=== PATIENT | female | born 1945 | race Caucasian/White ===

== ENCOUNTER 2017-09-28 11:46 | Outpatient (CLI) | payer MEDICARE ==
[2017-09-28 18:57] LABS: BASOPHILS # (AUTO) 0.1 10^3/uL (0.0-0.1); EOSINOPHILS # (AUTO) 0.2 10^3/uL (0.0-0.7); EOSINOPHILS % (AUTO) 2.8 %; HCT - HEMATOCRIT 35.8 % (37.0-47.0); HGB - HEMOGLOBIN 11.5 g/dL (12.0-16.0); LYMPHOCYTES # (AUTO) 1.6 10^3/uL (1.5-3.5); MEAN CORPUSCULAR HGB CONC 32.2 g/dL (32.0-36.0); MEAN PLATELET VOLUME 10.2 fL (7.9-10.8); MONOCYTES # (AUTO) 0.5 10^3/uL (0.0-1.0); MONOCYTES % (AUTO) 7.7 %; NEUTROPHILS % (AUTO) 63.5 %; RED BLOOD COUNT 4.26 10^6/uL (4.20-5.40); RED CELL DISTRIBUTION WIDTH 14.6 % (12.0-15.0); UNCORRECTED WHITE BLOOD COUNT 6.4 x10^3/uL; WHITE BLOOD COUNT 6.4 x10^3/uL (4.8-10.8)
[2017-09-28 19:34] LABS: ALBUMIN/GLOBULIN RATIO 1.4 (1.0-2.2); BILIRUBIN,TOTAL 0.8 mg/dL (0.2-1.0); BUN - BLOOD UREA NITROGEN 13 mg/dL (6-20); CALCIUM 9.5 mg/dL (8.5-10.3); CARBON DIOXIDE - CO2 27 mmol/L (21-32); CHLORIDE 103 mmol/L (101-111); CHOL/HDL RATIO 2.5 (<4.4); CHOLESTEROL 134 mg/dL; CREATININE 0.8 mg/dL (0.4-1.0); GFR - MDRD 71 (>89); GLUCOSE 118 mg/dL (70-100); HDL CHOLESTEROL 54 mg/dL; LDL/HDL RATIO 0.8 (<4.4); POTASSIUM 4.1 mmol/L (3.5-5.0); SODIUM 136 mmol/L (135-145); TOTAL PROTEIN 7.3 g/dL (6.7-8.2); TRIGLYCERIDES 180 mg/dL; VLDL CHOLESTEROL 36 mg/dL
[2017-09-28 19:37] LABS: HEMOGLOBIN A1C 0.58 g/dL
== END 2017-09-28 11:47 | disposition home or self-care (01) ==
LOC: LAB.F 11:46
PROVIDERS: ATTEND Physician Assistant Medical
DX: Z51.81 Encounter for therapeutic drug level monitoring (principal); I10 Essential (primary) hypertension; E78.5 Hyperlipidemia, unspecified; E11.9 Type 2 diabetes mellitus without complications
CPT/HCPCS: 36415; 80053; 80061; 83036; 85025

== ENCOUNTER 2017-10-21 11:59 | Outpatient (CLI) | payer MEDICARE ==
--- NOTE | 2017-10-24 09:58 | Mammography Report ---
DATE OF SERVICE: 10/21/2017 DIGITAL BILATERAL SCREENING MAMMOGRAM: 10/21/2017 CLINICAL INDICATION: A 72-year-old with history of late childbearing, history of benign biopsies, fo r screening. COMPARISON: 11/2015, 10/2013, 01/2012, 10/2010. TECHNIQUE: Routine CC and MLO projections were obtained of the breasts. FINDINGS: The breasts demonstrate scattered fibroglandular densities bilaterally. Coarse and puncta te, typically benign calcifications are present. No suspicious masses, clustered microcalcifications, or regions of architectural distortion are identified. IMPRESSION: BENIGN FINDINGS. RECOMMENDATION: ROUTINE ANNUAL SCREENING UNLESS OTHERWISE CLINICALLY INDICATED. BIRADS CATEGORY 2-BENIGN FINDINGS. STANDARD QUALIFYING STATEMENTS: 1. This examination was reviewed with the aid of Computer-Aided Detection (CAD). 2. A negative or benign imaging report should not delay biopsy if clinically suspicious findings are present. Consider surgical consultation if warranted. More than 5% of cancers are not identified by imaging. 3. Dense breasts may obscure an underlying neoplasm. TD: 10/24/2017 10:57
== END 2017-10-21 12:00 | disposition home or self-care (01) ==
LOC: DI.S 11:59
PROVIDERS: ATTEND Physician Assistant Medical
DX: Z12.31 Encounter for screening mammogram for malignant neoplasm of breast (principal)
CPT/HCPCS: 77067

== ENCOUNTER 2017-11-03 13:50 | Outpatient (CLI) | payer MEDICARE ==
[2017-11-03 16:55] VITALS: BP 142/74
--- NOTE | 2017-11-04 13:43 | CARDIAC PROCEDURE NOTE ---
DATE OF SERVICE: 11/03/2017 Physician: KATHY Julien DATE OF SERVICE: 11/03/2017 PRIMARY CARE PROVIDER: Brenda Larose PA-C. PROCEDURES: Stress echocardiogram. PROCEDURE SYMPTOMS: Atypical chest pain. CARDIAC RISK FACTORS: Include age, diabetes, hypertension, and hyperlipidemia. Previous cardiac procedures, ETT. CLINICAL HISTORY: A 72-year-old female without known coronary artery disease. Initial resting vital signs: Blood pressure 142/74, heart rate 76. Height 68 inches, weight 225 pounds, BMI 34.1. PROCEDURE AND FINDINGS: Patient's identity and date were verified, consent signed. After resting echocardiogram images were obtained, the patient performed treadmill exercise using a Alvin protocol, completing 6 minutes and 11 seconds and an estimated workload of 7.0 metabolic equivalents. Maximal blood pressure was 236/78 with a heart rate of 151 beats per minute or 102% maximum predicted heart rate for age. The blood pressure response to exercise was abnormal and slowly lowered to baseline over 9 minutes. The patient stopped because target heart rate was achieved and she was tiring. The resting ECG demonstrated normal sinus rhythm. There was less than 0.[address] segment depression and no ectopy. Post-exercise images were obtained immediately on cessation of exercise. FINAL IMPRESSION: 1. No ECG signs of ischemia, test incomplete, awaiting echocardiographic report. 2. Negative stress test clinically for angina. 3. Hypertensive response to exercise with slow recovery. TD: 11/04/2017 14:42
== END 2017-11-03 13:51 | disposition home or self-care (01) ==
LOC: DI 13:50
PROVIDERS: ATTEND Physician Assistant Medical
DX: R07.89 Other chest pain (principal); M79.602 Pain in left arm; I10 Essential (primary) hypertension; E11.9 Type 2 diabetes mellitus without complications
CPT/HCPCS: 93350

== ENCOUNTER 2018-01-06 13:35 | Outpatient (CLI) | payer MEDICARE ==
--- NOTE | 2018-01-06 15:21 | MRI Report ---
EXAM: MRI LUMBAR SPINE WITHOUT CONTRAST EXAM DATE: 01/06/2018 02:46 PM. CLINICAL HISTORY: BACK PAIN, LUMBAR WITH RADICULOPATHY. COMPARISON: None. TECHNIQUE: Multiplanar, multisequence T1-weighted and fluid-sensitive sequences of the lumbar spine f rom T12 to S1 without contrast. Other: None. FINDINGS: Spinal Cord: The conus terminates at L1. The conus medullaris and cauda equina are unremarkable. Fatt y filum terminale is noted with no MRI evidence of tethering. Alignment: Lower lumbar rotatory levoscoliosis with Clark angle of 14 degrees. Bone Marrow: Five mik-mia-hgjzoce lumbar vertebral bodies are assumed. No gross fractures or bone les ions. Modic type I degenerative endplate changes at L3-L4 level with mild endplate edema. Disk Levels/Facets: T12-L1: Unremarkable. L1-L2: Unremarkable. L2-L3: Moderate disk height loss and desiccation. Moderate diffuse disk bulge. Moderate to severe [place] ateral facet arthropathy and ligamentum flavum hypertrophy. Moderate to severe central canal narrowin g with canal AP diameter of 7.7 mm. Mild bilateral foraminal narrowing. L3-L4: Moderate disk height loss and desiccation. Moderate diffuse disk bulge with superimposed right subarticular/foraminal protrusion measuring 7 mm.. Moderate to severe right and moderate left facet arthropathy. Moderate bilateral ligamentum flavum hypertrophy. Moderate to severe central canal narro wing with AP diameter of 7.1 mm. Moderate to severe right foraminal narrowing. Mild left foraminal na rrowing. Moderate to severe right lateral recess narrowing with mass effect on traversing right L4 ne rve L4-L5: Mild disk height loss and desiccation. Moderate diffuse disk fold. Moderate to severe bilatera l facet arthropathy and ligamentum flavum hypertrophy. Moderate central canal narrowing with AP diame ter of 10.1 mm. Moderate left and zkmb-ig-endifoet right foraminal narrowing. Mild left lateral reces s narrowing with mass effect on traversing left L5 nerve. L5-S1: Mild disk bulge. Moderate to severe bilateral facet arthropathy. No significant central canal narrowing. Moderate to severe left and moderate right foraminal narrowing. Mild left lateral recess n arrowing with mass effect on traversing left S1 nerve. Musculature: Mild fatty atrophy of the paraspinal musculature. Other: Multiple T2 hyperintense lesions within the kidneys bilaterally, the largest exophytic lesion within the right kidney measuring 4.1 cm. These are nonspecific and incompletely evaluated on this st udy, may represent cysts. The partially visualized retroperitoneum is unremarkable. IMPRESSION: 1. Moderate multilevel degenerative spondylosis, as detailed above and summarized below. No acute fra cture or malalignment. No cord signal abnormality at any level. 2. Fatty filum terminale is noted, however no MRI evidence of tethering. 3. Lower lumbar rotatory levoscoliosis with Clark angle of 14 degrees. 4. Modic type I degenerative endplate changes at L3-L4 level with mild endplate edema. Modic type 1 c hanges may represent a source of pain. 5. L2-L3 level demonstrates moderate to severe central canal narrowing with canal AP diameter of 7.7 mm. Mild bilateral foraminal narrowing. 6. L3-L4 level demonstrates moderate to severe central canal narrowing with AP diameter of 7.1 mm. Mo derate to severe right foraminal narrowing. Mild left foraminal narrowing. Moderate to severe right l ateral recess narrowing with mass effect on traversing right L4 nerve 7. L4-L5 level demonstrates moderate central canal narrowing with AP diameter of 10.1 mm. Moderate le ft and gdzf-ea-bchsvtte right foraminal narrowing. Mild left lateral recess narrowing with mass effec t on traversing left L5 nerve. 8. L5-S1 level demonstrates no significant central canal narrowing. Moderate to severe left and moder ate right foraminal narrowing. Mild left lateral recess narrowing with mass effect on traversing left S1 nerve. Comment: The following findings are so common in adults without low back pain that while we report th eir presence, they must be interpreted with caution and in the context of the clinical situation. (Re kyle Mark et al, Spine 2001) Prevalence of findings in patients without low back pain: Disk degeneration (any evidence): 92% Disk desiccation/T2 signal loss: 83% Disk height loss: 56% Disk bulge: 64% Disk protrusion: 32% Annular tear/high intensity zone: 38% RAD[facility] Referring Provider Line: [phone] SITE ID: [id number]
== END 2018-01-06 13:36 | disposition home or self-care (01) ==
LOC: DI 13:35
PROVIDERS: ATTEND Family Medicine
DX: M51.36 Other intervertebral disc degeneration, lumbar region (principal); M47.896 Other spondylosis, lumbar region; M41.86 Other forms of scoliosis, lumbar region
CPT/HCPCS: 72148

== ENCOUNTER 2018-08-16 12:06 | Outpatient (CLI) | payer MEDICARE ==
[2018-08-16 17:57] LABS: BASOPHILS % (AUTO) 0.7 %; EOSINOPHILS # (AUTO) 0.2 10^3/uL (0.0-0.7); EOSINOPHILS % (AUTO) 3.1 %; HGB - HEMOGLOBIN 10.4 g/dL (12.0-16.0); LYMPHOCYTES # (AUTO) 1.6 10^3/uL (1.5-3.5); LYMPHOCYTES % (AUTO) 26.8 %; MEAN CORPUSCULAR HEMOGLOBIN 24.3 pg (27.0-31.0); MEAN CORPUSCULAR HGB CONC 31.5 g/dL (32.0-36.0); MEAN CORPUSCULAR VOLUME 77.1 fL (81.0-99.0); MEAN PLATELET VOLUME 9.7 fL (7.9-10.8); MONOCYTES # (AUTO) 0.4 10^3/uL (0.0-1.0); MONOCYTES % (AUTO) 7.2 %; NEUTROPHILS # (AUTO) 3.7 10^3/uL (1.5-6.6); NEUTROPHILS % (AUTO) 62.2 %; PLT - PLATELET COUNT 303 10^3/uL (130-450); RED BLOOD COUNT 4.29 10^6/uL (4.20-5.40); RED CELL DISTRIBUTION WIDTH 16.2 % (12.0-15.0); WHITE BLOOD COUNT 5.9 x10^3/uL (4.8-10.8)
[2018-08-16 18:23] LABS: ALBUMIN 4.1 g/dL (3.2-5.5); ALBUMIN/GLOBULIN RATIO 1.2 (1.0-2.2); ALKALINE PHOSPHATASE 52 IU/L (42-121); ALT ALANINE AMINOTRANSFERASE 15 IU/L (10-60); AST ASPARTATE AMINOTRANSFERASE 20 IU/L (10-42); BILIRUBIN,TOTAL 0.4 mg/dL (0.2-1.0); BUN - BLOOD UREA NITROGEN 11 mg/dL (6-20); CALCIUM 9.5 mg/dL (8.5-10.3); CARBON DIOXIDE - CO2 24 mmol/L (21-32); CHLORIDE 104 mmol/L (101-111); CHOL/HDL RATIO 2.6 (<4.4); CHOLESTEROL 145 mg/dL; CREATININE 0.7 mg/dL (0.4-1.0); GFR - MDRD 82 (>89); GLUCOSE 102 mg/dL (70-100); HDL CHOLESTEROL 55 mg/dL; LDL CHOLESTEROL,CALCULATED 68 mg/dL; LDL/HDL RATIO 1.2 (<4.4); SODIUM 137 mmol/L (135-145); TOTAL PROTEIN 7.4 g/dL (6.7-8.2); VLDL CHOLESTEROL 22 mg/dL
[2018-08-16 18:52] LABS: HB2 TOTAL 10.9 g/dL; HEMOGLOBIN A1C 0.5 g/dL; HEMOGLOBIN A1C % 6.3 % (4.6-6.2)
== END 2018-08-16 23:59 | disposition home or self-care (01) ==
LOC: LAB.F 12:06
PROVIDERS: ATTEND Physician Assistant Medical
DX: I10 Essential (primary) hypertension (principal); E78.5 Hyperlipidemia, unspecified; E11.9 Type 2 diabetes mellitus without complications
CPT/HCPCS: 36415; 80053; 80061; 82043; 83036; 83721; 85025

== ENCOUNTER 2018-08-18 13:03 | Outpatient (CLI) | payer MEDICARE ==
[2018-08-18 18:18] LABS: % IRON SATURATION 6 % (20-50); IRON 27 ug/dL (28-170); TOTAL IRON BINDING CAPACITY 459 ug/dL (250-450); TRANSFERRIN 328 mg/dL (192-382)
== END 2018-08-18 13:04 | disposition home or self-care (01) ==
LOC: LAB.F 13:03
PROVIDERS: ATTEND Physician Assistant Medical
DX: D64.9 Anemia, unspecified (principal)
CPT/HCPCS: 36415; 82728; 83540; 84466

== ENCOUNTER 2018-09-25 13:29 | Outpatient (CLI) | payer MEDICARE ==
--- NOTE | 2018-09-26 11:05 | DEXA Report ---
Reason: POSTMENOPAUSAL STATUS, SCREENING FOR OSTEOPOROSIS Procedure Date: 09/25/2018 Accession Number: [id number] / [id number] Procedure: DEX - Dexa Spine and/or Hip CPT Code: FULL RESULT: EXAM: Dexa Spine and/or Hip DATE: 09/25/2018 1:57 PM CLINICAL HISTORY: POSTMENOPAUSAL STATUS, SCREENING FOR OSTEOPOROSIS TECHNIQUE: Dual energy x-ray absorptiometry (DXA) was performed on a [employer] System. Regions measured are the AP Spine, femoral neck, and if needed forearm. COMPARISON: 05/06/2016. In accordance with the International Society for Clinical Densitometry (ISCD) guidelines, data from previous exams may be reanalyzed using current recommendations and techniques. This is done to allow a more accurate basis for comparison with the current study. FINDINGS: The data for the lumbar spine is as follows: BMD (g/cm/cm) T-SCORE Z-SCORE REGION L1 1.152 0.2 0.7 L2 1.393 1.6 2.2 L3 1.567 3.1 3.6 L4 1.443 2.0 2.6 TOTAL 1.392 1.8 2.3 NOTE: All evaluable vertebrae are used for classification The data for the hip is as follows: BMD (g/cm/cm) T-SCORE Z-SCORE REGION Neck 0.953 -0.6 0.5 TOTAL 1.011 0.0 0.8 NOTE: The femoral neck or total proximal femur, whichever is lowest, is used for classification. DXA RESULTS SUMMARY: Spine SCAN DATE [age]GE BMD CHANGE VS CHANGE VS PREVIOUS PREVIOUS % 09[birth year]25/2018 [age] 1.392 -0.011 -0.8 05/06/2016 [age] 1.403 * Denotes significant change at the 95% confidence level. Denotes dissimilar scan types or analysis methods. DXA RESULTS SUMMARY: Hip SCAN DATE AGE BMD CHANGE VS CHANGE VS PREVIOUS PREVIOUS % 09[birth year]25/2018 [age] 1.011 0.015 1.5 05/06/2016 [age] 0.996 * Denotes significant change at the 95% confidence level. Denotes dissimilar scan types or analysis methods. IMPRESSION: THE WHO CLASSIFICATION BASED ON THE INTERNATIONAL REFERENCE STANDARD IS NORMAL. THE FRACTURE RISK IS NOT INCREASED. RECOMMENDATION: Patients with diagnosis of osteoporosis or osteopenia should have regular bone mineral density assessment. For those eligible for Medicare, routine testing is allowed once every 2 years. Testing frequency can be increased for patients who have rapidly progressing disease or for those who are receiving medical therapy to restore bone mass. COMMENT: World Health Organization (WHO) definitions for osteoporosis and osteopenia: NORMAL BMD: T-score at -1.0 or higher, fracture risk is low OSTEOPENIA BMD: T-score between -1.0 and -2.5, fracture risk is increased. OSTEOPOROSIS BMD: T-score at -2.5 or lower, fracture risk is high. National Osteoporosis Foundation recommends: 1. Obtain adequate dietary calcium (at least 1200 mg per day) and vitamin D (400-800 international units per day). 2. Participate, as appropriate, in regular weightbearing and muscle-strengthening exercise. 3. Avoid tobacco use and reduce alcohol and caffeine intake. 4. For more detailed information see the website at www.NOF.org.
== END 2018-09-25 13:30 | disposition home or self-care (01) ==
LOC: DI 13:29
PROVIDERS: ATTEND Physician Assistant Medical
DX: Z13.820 Encounter for screening for osteoporosis (principal); Z78.0 Asymptomatic menopausal state
CPT/HCPCS: 77080

== ENCOUNTER 2019-09-27 10:58 | Outpatient (CLI) | payer MEDICARE ==
[2019-09-27 17:25] LABS: BASOPHILS # (AUTO) 0.1 10^3/uL (0.0-0.1); BASOPHILS % (AUTO) 0.8 %; EOSINOPHILS # (AUTO) 0.2 10^3/uL (0.0-0.7); EOSINOPHILS % (AUTO) 3.2 %; HGB - HEMOGLOBIN 10.2 g/dL (12.0-16.0); LYMPHOCYTES # (AUTO) 1.8 10^3/uL (1.5-3.5); LYMPHOCYTES % (AUTO) 30.5 %; MEAN CORPUSCULAR HGB CONC 28.8 g/dL (32.0-36.0); MEAN CORPUSCULAR VOLUME 79.7 fL (81.0-99.0); MEAN PLATELET VOLUME 11.3 fL (7.9-10.8); MONOCYTES # (AUTO) 0.6 10^3/uL (0.0-1.0); MONOCYTES % (AUTO) 9.1 %; NEUTROPHILS # (AUTO) 3.4 10^3/uL (1.5-6.6); NEUTROPHILS % (AUTO) 56.1 %; PLT - PLATELET COUNT 307 10^3/uL (130-450); RED BLOOD COUNT 4.44 10^6/uL (4.20-5.40); RED CELL DISTRIBUTION WIDTH 17.3 % (12.0-15.0)
[2019-09-27 17:45] LABS: ALBUMIN 4.1 g/dL (3.2-5.5); ALBUMIN/GLOBULIN RATIO 1.2 (1.0-2.2); ALKALINE PHOSPHATASE 54 IU/L (42-121); ALT ALANINE AMINOTRANSFERASE 16 IU/L (10-60); AST ASPARTATE AMINOTRANSFERASE 19 IU/L (10-42); BILIRUBIN,TOTAL 0.5 mg/dL (0.2-1.0); BUN - BLOOD UREA NITROGEN 12 mg/dL (6-20); CALCIUM 9.4 mg/dL (8.5-10.3); CARBON DIOXIDE - CO2 26 mmol/L (21-32); CHLORIDE 104 mmol/L (101-111); CHOL/HDL RATIO 2.7 (<4.4); CHOLESTEROL 141 mg/dL; CREATININE 0.8 mg/dL (0.4-1.0); GFR - MDRD 70 (>89); GLUCOSE 123 mg/dL (70-100); HDL CHOLESTEROL 53 mg/dL; LDL CHOLESTEROL,CALCULATED 63 mg/dL; LDL/HDL RATIO 1.2 (<4.4); SODIUM 139 mmol/L (135-145); TOTAL PROTEIN 7.6 g/dL (6.7-8.2); VLDL CHOLESTEROL 25 mg/dL
[2019-09-27 18:14] LABS: CREATININE,URINE 45.5 mg/dL
[2019-09-27 18:16] LABS: MICROALBUMIN,URINE < 0.2 mg/dL (0-300.0)
[2019-09-27 18:26] LABS: PLATELET ESTIMATE, MANUAL NORMAL (130-450,000) (NORMAL); PLATELET MORPHOLOGY NORMAL APPEARANCE (NORMAL); RBC MORPHOLOGY (MULTIPLE) 2+ ANISOCYTOSIS (NORMAL)
[2019-09-28 10:52] LABS: HB2 TOTAL 10.6 g/dL; HEMOGLOBIN A1C 0.54 g/dL; HEMOGLOBIN A1C % 6.8 % (4.6-6.2)
== END 2019-09-27 10:59 | disposition home or self-care (01) ==
LOC: LAB.S 10:58
PROVIDERS: ATTEND Physician Assistant Medical
DX: I10 Essential (primary) hypertension (principal); E78.5 Hyperlipidemia, unspecified; E11.9 Type 2 diabetes mellitus without complications; D50.9 Iron deficiency anemia, unspecified
CPT/HCPCS: 36415; 80053; 80061; 82043; 82570; 83036; 83721; 85025

== ENCOUNTER 2019-10-03 11:16 | Outpatient (CLI) | payer MEDICARE ==
--- NOTE | 2019-10-04 05:42 | XRAY Report ---
Reason: MID TARSAL JOINT, PAIN LT FOOT Procedure Date: 10/03/2019 Accession Number: [id number] / [id number] Procedure: XR - Foot 3 View LT CPT Code: Final Report FULL RESULT: EXAM: LEFT FOOT RADIOGRAPHY EXAM DATE: 10/03/2019 11:30 AM CLINICAL HISTORY: Mid tarsal joint, pain left foot. COMPARISON: None. TECHNIQUE: 3 views. FINDINGS: Bones: Possible old base of fifth metatarsal fracture versus accessory ossification center with nonunion. No acute fracture seen in the left foot. Joints: Mild degenerative changes at the tarsometatarsal joints. Mild first MTP joint degenerative changes. No subluxations. Soft Tissues: Normal. No soft tissue swelling. IMPRESSION: 1. Mild degenerative changes at the tarsometatarsal joints. 2. Mild first MTP joint degenerative changes. RADIA
== END 2019-10-03 11:17 | disposition home or self-care (01) ==
LOC: DI 11:16
PROVIDERS: ATTEND Podiatrist
DX: M19.072 Primary osteoarthritis, left ankle and foot (principal)

== ENCOUNTER 2020-05-01 10:41 | Outpatient (CLI) | payer MEDICARE ==
--- NOTE | 2020-05-01 12:50 | XRAY Report ---
PROCEDURE: Knee 3 View RT INDICATIONS: PAIN IN RIGHT KNEE TECHNIQUE: 3 views of the right knee(s) were acquired. COMPARISON: None. FINDINGS: Bones: No fractures or dislocations. No suspicious bony lesions. Moderate medial and patellofemora l compartment narrowing. Periarticular osteophytes are present. No erosions. Soft tissues: Moderate joint effusion. No suspicious soft tissue calcifications. IMPRESSION: Effusion and medial/patellofemoral compartment narrowing suggestive osteoarthritis. Reviewed by: Debra Guillen MD on 05/01/2020 12:49 PM PDT Approved by: Debra Guillen MD on 05/01/2020 12:49 PM PDT Station ID: [id number]
== END 2020-05-01 10:42 | disposition home or self-care (01) ==
LOC: DI.S 10:41
PROVIDERS: ATTEND Internal Medicine
DX: M25.461 Effusion, right knee (principal); R93.6 Abnormal findings on diagnostic imaging of limbs

== ENCOUNTER 2020-06-25 15:23 | Outpatient (CLI) | payer MEDICARE | END 2020-06-25 15:24 | disposition home or self-care (01) | LOC: COV 15:23 | PROVIDERS: ATTEND Family Medicine | DX: R05 Cough (principal); M79.10 Myalgia, unspecified site; R53.83 Other fatigue; Z20.828 Contact with and (suspected) exposure to other viral communicable diseases ==

== ENCOUNTER 2020-09-02 11:34 | Outpatient (CLI) | payer MEDICARE ==
[2020-09-02 14:35] LABS: HEMOGLOBIN A1c% 6.8 % (4.27-6.07)
== END 2020-09-02 11:35 | disposition home or self-care (01) ==
LOC: LAB.S 11:34
PROVIDERS: ATTEND Orthopaedic Surgery
DX: E11.9 Type 2 diabetes mellitus without complications (principal)
CPT/HCPCS: 36415; 83036

== ENCOUNTER 2020-12-30 11:03 | Outpatient (CLI) | payer MEDICARE ==
--- NOTE | 2020-12-31 15:09 | Mammography Report ---
BILATERAL DIGITAL SCREENING MAMMOGRAM 3D/2D: 12/30/2020 CLINICAL: Routine screening. Comparison is made to exams dated: 11/19/2015 mammogram and 10/21/2017 mammogram - [facility]. There are scattered fibroglandular elements in both breasts. No significant masses, calcifications, or other findings are seen in either breast. There has been no significant interval change. IMPRESSION: NEGATIVE There is no mammographic evidence of malignancy. A 1 year screening mammogram is recommended. This exam was interpreted at Station ID: [id number]. NOTE: For mammograms, a report in lay terms will be sent to the patient. Approximately 15% of breast malignancies will not be visualized mammographically. In the management of a palpable breast mass, a negative mammogram must not discourage biopsy of a clinically suspicious lesion. Electronically Signed By: Jay Jay bangura/penrad:12/30/2020 14:01:27 ACR BI-RADS Category 1: Negative 3341F PARENCHYMAL PATTERN: (A) - The breast(s) demonstrate(s) scattered fibroglandular densities. BI-RADS CATEGORY: (1) - 1 RECOMMENDATION: (ANNUAL) - Recommend routine annual screening mammography. [id number] 1 year screening LATERALITY: (B)
== END 2020-12-30 11:04 | disposition home or self-care (01) ==
LOC: DI.S 11:03
PROVIDERS: ATTEND Registered Nurse
DX: Z12.31 Encounter for screening mammogram for malignant neoplasm of breast (principal)

== ENCOUNTER 2021-09-26 11:14 | Outpatient (CLI) | payer MEDICARE ==
[2021-09-26 15:08] LABS: BASOPHILS # (AUTO) 0.1 10^3/uL (0.0-0.1); BASOPHILS % (AUTO) 0.9 %; EOSINOPHILS # (AUTO) 0.2 10^3/uL (0.0-0.7); EOSINOPHILS % (AUTO) 3.3 %; HCT - HEMATOCRIT 34.9 % (37.0-47.0); HGB - HEMOGLOBIN 11.1 g/dL (12.0-16.0); LYMPHOCYTES # (AUTO) 1.7 10^3/uL (1.5-3.5); LYMPHOCYTES % (AUTO) 25.9 %; MEAN CORPUSCULAR HEMOGLOBIN 27.2 pg (27.0-31.0); MEAN CORPUSCULAR HGB CONC 31.8 g/dL (32.0-36.0); MEAN CORPUSCULAR VOLUME 85.5 fL (81.0-99.0); MEAN PLATELET VOLUME 11.5 fL (7.9-10.8); MONOCYTES # (AUTO) 0.7 10^3/uL (0.0-1.0); MONOCYTES % (AUTO) 10.1 %; NEUTROPHILS # (AUTO) 3.9 10^3/uL (1.5-6.6); NEUTROPHILS % (AUTO) 59.6 %; PLT - PLATELET COUNT 335 10^3/uL (130-450); RED BLOOD COUNT 4.08 10^6/uL (4.20-5.40); RED CELL DISTRIBUTION WIDTH 13.4 % (12.0-15.0); WHITE BLOOD COUNT 6.5 x10^3/uL (4.8-10.8)
[2021-09-26 15:39] LABS: THYROID STIMULATING HORMONE 4.25 uIU/mL (0.34-5.60)
[2021-09-26 15:40] LABS: ALBUMIN 4.1 g/dL (3.2-5.5); ALBUMIN/GLOBULIN RATIO 1.2 (1.0-2.2); ALKALINE PHOSPHATASE 44 IU/L (42-121); ALT ALANINE AMINOTRANSFERASE 20 IU/L (10-60); AST ASPARTATE AMINOTRANSFERASE 20 IU/L (10-42); BILIRUBIN,TOTAL 0.5 mg/dL (0.2-1.0); BUN - BLOOD UREA NITROGEN 21 mg/dL (6-20); CALCIUM 9.6 mg/dL (8.5-10.3); CARBON DIOXIDE - CO2 27 mmol/L (21-32); CHLORIDE 98 mmol/L (101-111); CHOL/HDL RATIO 2.7 (<4.4); CHOLESTEROL 137 mg/dL; GFR - MDRD 54 (>89); GLUCOSE 154 mg/dL (70-100); HDL CHOLESTEROL 51 mg/dL; LDL CHOLESTEROL,CALCULATED 64 mg/dL; LDL/HDL RATIO 1.3 (<4.4); POTASSIUM 4.1 mmol/L (3.5-5.0); SODIUM 134 mmol/L (135-145); TOTAL PROTEIN 7.5 g/dL (6.7-8.2); TRIGLYCERIDES 110 mg/dL; VLDL CHOLESTEROL 22 mg/dL
[2021-09-26 19:46] LABS: ESTIMATED AVERAGE GLUCOSE 154 mg/dL (70-100)
== END 2021-09-26 11:15 | disposition home or self-care (01) ==
LOC: LAB.S 11:14
PROVIDERS: ATTEND Registered Nurse
DX: K21.9 Gastro-esophageal reflux disease without esophagitis (principal); E78.5 Hyperlipidemia, unspecified; I10 Essential (primary) hypertension; E11.9 Type 2 diabetes mellitus without complications
CPT/HCPCS: 36415; 80053; 80061; 82043; 82570; 83036; 83721; 84443; 85025

== ENCOUNTER 2021-11-20 18:07 | Outpatient (CLI) | payer MEDICARE ==
[2021-11-20 20:13] LABS: ALBUMIN 3.8 g/dL (3.2-5.5); ALBUMIN/GLOBULIN RATIO 1.3 (1.0-2.2); BILIRUBIN,TOTAL 0.8 mg/dL (0.2-1.0); POTASSIUM 3.6 mmol/L (3.5-5.0); TOTAL PROTEIN 6.8 g/dL (6.7-8.2)
== END 2021-11-20 23:59 | disposition home or self-care (01) ==
LOC: LAB.S 18:07
PROVIDERS: ATTEND Physician Assistant
DX: E87.1 Hypo-osmolality and hyponatremia (principal); N39.0 Urinary tract infection, site not specified
CPT/HCPCS: 36415; 80053; 87086; 87181

== ENCOUNTER 2022-02-02 14:32 | Outpatient (CLI) | payer MEDICARE ==
--- NOTE | 2022-02-02 16:30 | DEXA Report ---
PROCEDURE: Dexa Spine and/or Hip INDICATIONS: POST MENOPAUSAL TECHNIQUE: Dual energy x-ray absorptiometry (DXA) was performed on a [employer] System. Regions measur ed are the AP Spine, femoral neck, and if needed forearm. COMPARISON: None. FINDINGS: Lumbar Spine: Bone Mineral Density 1.490 g/cm/cm,T score 2.6, normal, change from previous 7.0%, significant Left Hip: Bone Mineral Density 0.961 g/cm/cm,T score -0.4, normal, change from previous -4.9%, significant Left Femoral Neck: Bone Mineral Density 0.954 g/cm/cm, T score -0.6, normal, change from previous 1.5% (T score greater or equal to -1.0: NORMAL) (T score from -1.1 to -2.4: OSTEOPENIA) (T score less than or equal to -2.5 to: OSTEOPOROSIS) Impression: 1. Normal bone mineral density. 2. Significant interval decrease in left hip bone mineral density compared to the prior study. 3. Significant interval increase in lumbar spine bone mineral density. This may be secondary to degen erative sclerosis. Patients with diagnosis of osteoporosis or osteopenia should have regular bone mineral density assess ment. For those eligible for Medicare, routine testing is allowed once every 2 years. Testing frequ ency can be increased for patients who have rapidly progressing disease or for those who are receivin g medical therapy to restore bone mass. Reviewed by: Sumaya Tesfaye MD on 02/02/2022 4:29 PM PDT Approved by: Sumaya Tesfaye MD on 02/02/2022 4:29 PM PDT Station ID: [id number]
== END 2022-02-02 14:33 | disposition home or self-care (01) ==
LOC: DI 14:32
PROVIDERS: ATTEND Registered Nurse
DX: Z78.0 Asymptomatic menopausal state (principal)

== ENCOUNTER 2023-03-30 12:49 | Outpatient (CLI) | payer MEDICARE ==
[2023-03-30 15:30] LABS: CREATININE,URINE 469.7 mg/dL; MICROALBUM/CREATININE RATIO,UR 4.7 ug/mg (<30.0); MICROALBUMIN,URINE 2.2 mg/dL (0-300.0)
[2023-03-30 19:41] LABS: BASOPHILS # (AUTO) 0.1 10^3/uL (0.0-0.1); BASOPHILS % (AUTO) 1.1 %; EOSINOPHILS # (AUTO) 0.2 10^3/uL (0.0-0.7); EOSINOPHILS % (AUTO) 2.7 %; HCT - HEMATOCRIT 35.3 % (37.0-47.0); HGB - HEMOGLOBIN 11.1 g/dL (12.0-16.0); LYMPHOCYTES # (AUTO) 1.6 10^3/uL (1.5-3.5); LYMPHOCYTES % (AUTO) 28.7 %; MEAN CORPUSCULAR HEMOGLOBIN 26.7 pg (27.0-31.0); MEAN CORPUSCULAR HGB CONC 31.4 g/dL (32.0-36.0); MEAN CORPUSCULAR VOLUME 84.9 fL (81.0-99.0); MEAN PLATELET VOLUME 11.8 fL (7.9-10.8); MONOCYTES # (AUTO) 0.5 10^3/uL (0.0-1.0); NEUTROPHILS # (AUTO) 3.3 10^3/uL (1.5-6.6); NEUTROPHILS % (AUTO) 58.5 %; PLT - PLATELET COUNT 268 10^3/uL (130-450); RED BLOOD COUNT 4.16 10^6/uL (4.20-5.40); RED CELL DISTRIBUTION WIDTH 14.1 % (12.0-15.0); WHITE BLOOD COUNT 5.6 x10^3/uL (4.8-10.8)
[2023-03-30 19:55] LABS: ALBUMIN 3.9 g/dL (3.2-5.5); ALBUMIN/GLOBULIN RATIO 1.1 (1.0-2.2); ALKALINE PHOSPHATASE 52 IU/L (42-121); ALT ALANINE AMINOTRANSFERASE 18 IU/L (10-60); AST ASPARTATE AMINOTRANSFERASE 18 IU/L (10-42); BILIRUBIN,TOTAL 0.6 mg/dL (0.2-1.0); BUN - BLOOD UREA NITROGEN 18 mg/dL (6-20); CALCIUM 9.8 mg/dL (8.5-10.3); CARBON DIOXIDE - CO2 29 mmol/L (21-32); CHLORIDE 104 mmol/L (101-111); CHOL/HDL RATIO 2.5 (<4.4); CHOLESTEROL 148 mg/dL; GFR - MDRD 54 (>89); GLUCOSE 121 mg/dL (70-100); HDL CHOLESTEROL 60 mg/dL; LDL CHOLESTEROL,CALCULATED 70 mg/dL; LDL/HDL RATIO 1.2 (<4.4); POTASSIUM 4.6 mmol/L (3.5-5.0); SODIUM 139 mmol/L (135-145); TOTAL PROTEIN 7.3 g/dL (6.7-8.2); TRIGLYCERIDES 92 mg/dL; VLDL CHOLESTEROL 18 mg/dL
[2023-03-30 20:04] LABS: THYROID STIMULATING HORMONE 5.2 uIU/mL (0.34-5.60)
[2023-03-30 20:26] LABS: ESTIMATED AVERAGE GLUCOSE 151 mg/dL (70-100); HEMOGLOBIN A1c% 6.9 % (4.27-6.07)
== END 2023-03-30 12:50 | disposition home or self-care (01) ==
LOC: LAB.S 12:49
PROVIDERS: ATTEND Registered Nurse
DX: E78.5 Hyperlipidemia, unspecified (principal); Z79.899 Other long term (current) drug therapy; Z13.29 Encounter for screening for other suspected endocrine disorder; E11.9 Type 2 diabetes mellitus without complications
CPT/HCPCS: 36415; 80053; 80061; 82043; 82570; 83036; 83721; 84443; 85025

== ENCOUNTER 2023-06-17 13:06 | Outpatient (CLI) | payer MEDICARE ==
--- NOTE | 2023-06-17 14:43 | DEXA Report ---
PROCEDURE: Dexa Spine and/or Hip INDICATIONS: DECREASED BONE DENSITY TECHNIQUE: Dual energy x-ray absorptiometry (DXA) was performed on a [employer] System. Regions measur ed are the AP Spine, femoral neck, and if needed forearm. COMPARISON: 02/02/2022 FINDINGS: Lumbar Spine: Bone Mineral Density 1.356 g/cm/cm,T score 1.6. Since the most recent prior study, there has been a statistically significant increase in bone mineral density by 4.0 percent. Left Femoral Neck: Bone Mineral Density 0.914 g/cm/cm, T score -0.9. Left Hip: Bone Mineral Density 0.908 g/cm/cm,T score -0.8. Since the most recent prior study, there has been a statistically significant decrease in bone mineral density by 5.5 percent. (T score greater or equal to -1.0: NORMAL) (T score from -1.1 to -2.4: OSTEOPENIA) (T score less than or equal to -2.5 to: OSTEOPOROSIS) Impression: By WHO criteria, this patient has normal bone density. Interval statistical increase in bone minteral density of the lumbar spine. Interval statistical decr ease in bone minteral density of the hip. Patients with diagnosis of osteoporosis or osteopenia should have regular bone mineral density assess ment. For those eligible for Medicare, routine testing is allowed once every 2 years. Testing frequ ency can be increased for patients who have rapidly progressing disease or for those who are receivin g medical therapy to restore bone mass. Reviewed by: Laci Carranza MD on 06/17/2023 2:41 PM PDT Approved by: Laci Carranza MD on 06/17/2023 2:41 PM PDT Station ID: [id number]
== END 2023-06-17 13:07 | disposition home or self-care (01) ==
LOC: DI 13:06
PROVIDERS: ATTEND Registered Nurse
DX: M85.80 Other specified disorders of bone density and structure, unspecified site (principal)

== ENCOUNTER 2023-11-01 18:28 | Outpatient (CLI) | payer MEDICARE | END 2023-11-01 18:29 | disposition critical access hospital (66) | LOC: EMS 18:28 | DX: R41.0 Disorientation, unspecified (principal); R47.01 Aphasia; R51.9 Headache, unspecified | CPT/HCPCS: A0425; A0429 ==

== ENCOUNTER 2023-11-01 18:42 | Emergency (ER) | payer MEDICARE ==
--- NOTE | 2023-11-01 18:48 | ED Physician Documentation ---
PD HPI FOCAL NEURO - Stated complaint Stated Complaint: CODE STROKE - History obtained from History obtained from: Patient, EMS - Additional information Additional information: 78-year-old woman brought in as a code stroke. At 5:40 PM tonight she became confused with severe headache and vomiting. She has a history of hypertension and [facility] last night as a code stroke for speech difficulty and altered mental status, reportedly similar symptoms to what transpired today. Subsequently she had a CT of the brain, CT angio, echo, and MRI which were all negative. She was placed on dual antiplatelet therapy and was reportedly normal on discharge. Prehospital blood sugar was 106. 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 - Present Medications Home Medications: Ambulatory Orders Medication Instructions Recorded Confirmed Metformin HCl 1,000 mg PO BID 04/27/13 10/04/15 Simvastatin [Zocor] 40 mg PO QPM 04/27/13 10/04/15 lisinopriL [Zestril] 10 mg PO HS 04/27/13 10/04/15 Glimepiride [Amaryl] 1 tab PO DAILY 09/18/15 10/04/15 - Allergies Allergies/Adverse Reactions: Allergies Allergy/AdvReac Type Severity Reaction Status Date / Time Sulfa (Sulfonamide AdvReac Unknown unknown Verified 11/01/23 19:08 Antibiotics) - Social History Does the pt smoke?: No Smoking Status: Never smoker Does the pt drink ETOH?: No Does the pt have substance abuse?: No - Immunizations Immunizations are current?: No Immunizations: TDAP >10years/unknown PD ED PE NORMAL - Vitals Vital signs reviewed: Yes - General General: Other (She is alert and oriented per person and place but not time or events. 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, No motor deficit, No sensory deficit, Normal speech Eye Opening: Spontaneous Motor: Obeys Commands Verbal: Confused GCS Score: 14 NIHSS - Time Time: 18:45 - Level of Consciousness Level of consciousness: (0) Alert, Keenly responsive LOC Questions: (2) Answers neither correct LOC Commands: (0) Performs both correctly - Gaze Best Gaze: (0) Normal - Visual Visual: (0) No loss - Facial Palsy Facial Palsy: (0) Normal, symmetrical movement - Motor Arms (both separate) Motor Arm (right): (0) No drift Motor Arm (left): (0) No drift - Motor Legs (both separate) Motor Leg (right): (0) No drift Motor Leg (left): (0) No drift - Limb Ataxia Limb Ataxia: (0) Absent - Sensory Sensory: (0) Normal - Best Language Best Language: (0) No aphasia - Dysarthria Dysarthria: (0) Normal - Extinction and Inattention (formally neg Extinction and inattention: (0) No abnormality - Total Score/Results Total Score/Result: 2 Results - Vitals Vitals: Vital Signs - 24 hr 11/01/23 11/01/23 11/01/23 19:03 19:26 20:13 Temperature 36.5 C Heart Rate 97 97 94 Respiratory 16 18 17 Rate Blood Pressure 137/100 H 162/75 H 209/82 H O2 Saturation 97 100 98 If not protocol 3 : Oxygen Flow, liters/minute 11/01/23 11/01/23 11/01/23 20:24 20:34 20:48 Temperature Heart Rate 88 90 88 Respiratory 19 17 17 Rate Blood Pressure 185/76 H 187/80 H O2 Saturation 97 97 97 If not protocol 3 3 : Oxygen Flow, liters/minute 11/01/23 21:00 Temperature Heart Rate 87 Respiratory 18 Rate Blood Pressure 177/77 H O2 Saturation 98 If not protocol 3 : Oxygen Flow, liters/minute Oxygen O2 Source Nasal cannula - EKG (time done) 2015 EKG releavant findings:: EKG personally interpreted by author of this note. Relevant findings are: Rate: Rate (enter#) (87) Rhythm: NSR, LAE [place]: Normal Intervals: Normal ND QRS: Normal Ischemia: Normal ST segments - Labs Labs: Laboratory Tests 11/01/23 11/01/23 11/01/23 19:17 19:17 19:17 WBC 7.9 RBC 4.06 L Hgb 10.7 L Hct 34.9 L MCV 86.0 MCH 26.4 L MCHC 30.7 L RDW 14.0 Plt Count 288 MPV 11.0 H Neut # (Auto) 5.7 Lymph # (Auto) 1.3 L [place] # (Auto) 0.8 Eos # (Auto) 0.1 Baso # (Auto) 0.0 Absolute Nucleated RBC 0.00 Nucleated RBC % 0.0 PT 12.6 INR 1.2 Sodium 133 L Potassium 3.8 Chloride 97 L Carbon Dioxide 27 Anion Gap 9.0 BUN 23 H Creatinine 1.2 Estimated GFR (MDRD) 43 L Glucose 127 H Calcium 9.5 Total Bilirubin 0.5 AST 16 ALT 14 Alkaline Phosphatase 49 Total Protein 7.2 Albumin 4.2 Globulin 3.0 Albumin/Globulin Ratio 1.4 Lipase 48 PD Medical Decision Making - ED course ED course: 78-year-old woman with an acute encephalopathy with word finding difficulties but really no other focal findings. This is recurrent since last night with fairly thorough workup last night at [facility] outlined above. She went over to CT and had repeat CTAs done which were negative. There is a thyroid nodule. And we discussed case by phone with telestroke physician, Dr. Darshan Joe who recommends against tPA. Subsequently she was given modest dose of 4 mg of morphine for send like a jaziel ble headache and she was noted to be a little more hypertensive at 200/90 so labetalol was ordered as well. TSH done at [facility] was unremarkable at 1.4. CBC showing modest anemia, stable from prior, INR normal, electrolytes on CMP notable for mild hyponatremia, she has had worse numbers in the past and mild prerenal azotemia. After labetalol and morphine she had no improvement in her word salad and daughter would like her transferred somewhere with neurology coverage and the search for an open bed at a tertiary facility was begun at approximately 9:15 PM. Departure - Departure Disposition: 02 Transfer Acute Care Hosp Clinical Impression: Encephalopathy, Thyroid nodule Condition: Serious Comments: Incidentally we did find a thyroid nodule of the left side of the thyroid measuring 1.5 cm. Follow-up with your primary care physician for discussion. Forms: PCP List
[2023-11-01] MEDS ORDERED: MORPHINE 2 MG/ML CARPUJECT IVP STA (19:10)
--- NOTE | 2023-11-01 19:11 | CT Report ---
PROCEDURE: Head W/O Stroke Protocol INDICATIONS: Neuro deficit, acute, stroke suspected TECHNIQUE: Noncontrast 4.5 mm thick angled axial sections acquired from the foramen magnum to the vertex, with c oronal reformats. For radiation dose reduction, the following was used: automated exposure control, adjustment of mA and/or kV according to patient size. COMPARISON: None. FINDINGS: Image quality: Diagnostic. CSF spaces: Basal cisterns are patent. No extra-axial fluid collections. Ventricles are normal in size and shape. Mild periventricular and deep white matter hypodensities, which are nonspecific, but likely represent chronic microvascular ischemic changes. Brain: No midline shift. No intracranial masses or hemorrhage. Ferrera-white matter interface is norm al. Skull and face: Calvarium and visualized facial bones are intact, without suspicious lesions. Bilat eral lens replacement. Sinuses: Visualized sinuses and mastoids are clear. IMPRESSION: No acute intracranial pathology Findings were discussed with ordering ED provider by Dr. Beltre on 11/01/2023 at 7:08pm. This study fulfills neurological imaging criteria for inclusion or exclusion of acute stroke therapie s based on available published neurological imaging guidelines. Reviewed by: Laura Beltre MD on 11/01/2023 7:10 PM PST Approved by: Laura Beltre MD on 11/01/2023 7:10 PM PST Station ID: [id number]
--- NOTE | 2023-11-01 19:20 | CT Report ---
PROCEDURE: Angio Head/Neck INDICATIONS: stroke sx CONTRAST: 80mL Omni 300 TECHNIQUE: After the administration of intravenous contrast, 1.5 mm axial sections acquired from the aortic arch to the [place]. Coronal 3-D maximum intensity projection (MIP) and/or volume rendering ref ormats were then performed. For radiation dose reduction, the following was used: automated exposur e control, adjustment of mA and/or kV according to patient size. COMPARISON: None. FINDINGS: Image quality: Mildly degraded due to motion artifact and beam hardening artifact from external wires and dental amalgam Carotid system: The great vessels demonstrate a conventional anatomy as they arise from the aortic a rch. The origins of the common carotid arteries appear patent. The common carotid arteries demonstr ate normal calibers and courses. The bifurcation regions appear normal bilaterally minimal atheroscl erotic calcifications. The internal carotid arteries demonstrate normal caliber and course minimal a therosclerotic calcifications. Posterior circulation: The origins of the vertebral arteries appear patent. The more superior porti ons of the vertebral arteries demonstrate normal course and caliber. They join to form a normal appe aring basilar artery. Soft tissues: Visualized neck soft tissues demonstrate no suspicious abnormalities. Left thyroid no dule measuring 1.5 cm. Bones: No suspicious bony lesions. Visualized cervical spine appears normally aligned. IMPRESSION: No acute intracranial abnormality. No acute intracranial arterial abnormality. No flow-limiting stenosis of the neck arteries. Left thyroid nodule measuring 1.5 cm. Consider nonemergent thyroid ultrasound for further evaluation if clinically appropriate. The estimate of stenosis included in the report of the imaging study was calculated using the NASCET method CLINICAL RECOMMENDATION STATEMENTS: In patients <35 years with an ITN detected on CT, MRI, or extrathyroidal ultrasound, the Committee re commends further evaluation with dedicated thyroid ultrasound if the nodule is "e1 cm and has no susp icious imaging features, and if the patient has normal life expectancy. In patients "e35 years with an ITN detected on CT, MRI, or extrathyroidal ultrasound, the Committee r ecommends further evaluation with dedicated thyroid ultrasound if the nodule is "e1.5 cm and has no s uspicious imaging features, and if the patient has normal life expectancy. (ACR, 2014) Reviewed by: Laura Beltre MD on 11/01/2023 7:19 PM PST Approved by: Laura Beltre MD on 11/01/2023 7:19 PM [facility] Station ID: [id number]
[2023-11-01] MEDS ORDERED: iohexoL-300 100 ML VIAL IVP ONE (19:23)
[2023-11-01 19:24] LABS: BASOPHILS % (AUTO) 0.5 %; EOSINOPHILS # (AUTO) 0.1 10^3/uL (0.0-0.7); EOSINOPHILS % (AUTO) 1.3 %; HCT - HEMATOCRIT 34.9 % (37.0-47.0); HGB - HEMOGLOBIN 10.7 g/dL (12.0-16.0); LYMPHOCYTES # (AUTO) 1.3 10^3/uL (1.5-3.5); LYMPHOCYTES % (AUTO) 16.2 %; MEAN CORPUSCULAR HEMOGLOBIN 26.4 pg (27.0-31.0); MEAN CORPUSCULAR HGB CONC 30.7 g/dL (32.0-36.0); MONOCYTES # (AUTO) 0.8 10^3/uL (0.0-1.0); MONOCYTES % (AUTO) 10.2 %; NEUTROPHILS # (AUTO) 5.7 10^3/uL (1.5-6.6); NEUTROPHILS % (AUTO) 71.4 %; PLT - PLATELET COUNT 288 10^3/uL (130-450); RED BLOOD COUNT 4.06 10^6/uL (4.20-5.40); WHITE BLOOD COUNT 7.9 x10^3/uL (4.8-10.8)
[2023-11-01 19:34] LABS: ALBUMIN 4.2 g/dL (3.2-5.5); ALBUMIN/GLOBULIN RATIO 1.4 (1.0-2.2); BILIRUBIN,TOTAL 0.5 mg/dL (0.2-1.0); CALCIUM 9.5 mg/dL (8.5-10.3); CREATININE 1.2 mg/dL (0.6-1.3); POTASSIUM 3.8 mmol/L (3.5-4.5); TOTAL PROTEIN 7.2 g/dL (6.4-8.9)
[2023-11-01] MEDS ORDERED: LABETALOL 20 MG/4 ML SYRINGE IVP STA (19:50)
[2023-11-01 20:15] LABS: INR 1.2 (0.8-1.2); PT - PROTHROMBIN TIME 12.6 secs (9.9-12.6)
[2023-11-01 21:22] LABS: BILIRUBIN,URINE NEGATIVE (NEGATIVE); GLUCOSE, URINE (UA) NEGATIVE (NEGATIVE); KETONES,URINE (UA) 15 mg/dL (NEGATIVE); LEUKOCYTE ESTERASE, URINE NEGATIVE (NEGATIVE); NITRITE,URINE NEGATIVE (NEGATIVE); OCCULT BLOOD,URINE TRACE-INTA (NEGATIVE); PH,URINE 6.5 PH (5.0-7.5); PROTEIN,URINE 30 mg/dL (NEGATIVE); UROBILINOGEN,URINE 0.2 (NORMAL) E.U./dL (NORMAL)
[2023-11-01 21:32] LABS: CLARITY,URINE HAZY (CLEAR)
[2023-11-01 21:33] LABS: AMPHETAMINE SCREEN,URINE NEGATIVE (NEGATIVE); BARBITURATE SCREEN,UR NEGATIVE (NEGATIVE); BENZODIAZEPINES SCREEN, URINE NEGATIVE (NEGATIVE); BUPRENORPHINE SCREEN, URINE NEGATIVE (NEGATIVE); COCAINE SCREEN URINE NEGATIVE (NEGATIVE); METHADONE SCREEN, URINE NEGATIVE (NEGATIVE); METHAMPHETAMINES SCREEN, URINE NEGATIVE (NEGATIVE); OPIATE SCREEN, URINE POSITIVE (NEGATIVE); OXYCODONE SCREEN, URINE NEGATIVE (NEGATIVE); THC CANNABINOID SCREEN, URINE NEGATIVE (NEGATIVE); TRICYCLIC ANTIDEPRESSANT,URINE NEGATIVE (NEGATIVE)
[2023-11-01 21:35] LABS: AMORPHOUS SEDIMENT,UR Rare /LPF; BACTERIA,URINE Few /HPF (None Seen); RBC,URINE 0-5 /HPF (0-5); SQUAMOUS EPITHELIAL CELL,UR FEW Squamous (<= Few); WBC,URINE 0-3 /HPF (0-5)
[2023-11-01 22:31] LABS: B. PARAPERTUSSIS- RESP PCR PAN NOT DETECTED; B. PERTUSSIS- RESP PCR PANEL NOT DETECTED; C. PNEUMONIAE- RESP PCR PANEL NOT DETECTED; CORONAVIRUS 229E-RESP PCR NOT DETECTED; CORONAVIRUS HKU1-RESP PCR NOT DETECTED; CORONAVIRUS NL63-RESP PCR NOT DETECTED; CORONAVIRUS OC43-RESP PCR NOT DETECTED; HUMAN METAPNEUMOVIRUS NOT DETECTED; INFLUENZA A- RESP PCR PANEL NOT DETECTED; INFLUENZA B - RESP PCR PANEL NOT DETECTED; M. PNEUMONIAE- RESP PCR PANEL NOT DETECTED; PARAINFLUENZA VIRUS 1 NOT DETECTED; PARAINFLUENZA VIRUS 2 NOT DETECTED; PARAINFLUENZA VIRUS 3 NOT DETECTED; PARAINFLUENZA VIRUS 4 NOT DETECTED; RHINOVIRUS/ENTEROVIRUS NOT DETECTED; RSV- RESP PCR PANEL NOT DETECTED; SARS-CoV-2 -RESP PCR PANEL NOT DETECTED
[2023-11-01] MEDS ORDERED: METOCLOPRAMIDE 10 MG/2 ML VIAL IVP STA (22:52)
--- NOTE | 2023-11-02 08:25 | ED Physician Documentation ---
ED Addendum - Addendum Addendum: 11/02/23 Patient boarding in the emergency department awaiting transfer to facility with neurology capabilities. The daughter is at the bedside. Patient is still sleeping this morning so I have not woken her up. Per daughter she still had expressive aphasia when daughter left last night. Per daughter she was just started on Plavix during this recent admission to [facility] and she is unsure if she is actually taken any of her Plavix. MRI was done and [facility] which showed no evidence of stroke. She had an echo without clot or PFO and EF of 65 to 70%.She was placed on dual antiplatelet therapy Patient has been accepted to [place] but there is no bed available and we are unclear as to when a bed may become available. I have spoken with our refinery operator vapor recovery unit to double check with other facilities to see if she is on their waiting list. 11/02/23 13:41 Patient has been up and ambulating. She is speaking more clearly. Her MRI has resulted and is negative for a stroke. Still awaiting to hear from [facility] [place]. Bed was available at [place]. Patient and daughter made aware. Departure - Departure Disposition: 02 Transfer Acute Care Hosp Clinical Impression: Encephalopathy, Thyroid nodule, Expressive aphasia Condition: Stable Comments: Incidentally we did find a thyroid nodule of the left side of the thyroid measuring 1.5 cm. Follow-up with your primary care physician for discussion. Forms: PCP List Discharge Date/Time: 11/02/23 17:42
--- NOTE | 2023-11-02 11:54 | MRI Report ---
PROCEDURE: Brain WO INDICATIONS: Expressive aphasia TECHNIQUE: Noncontrast axial T1 spin echo, axial T2 fast spin echo, sagittal and axial FLAIR, coronal T2 fast sp in echo, axial gradient echo, axial diffusion and ADC through the brain. COMPARISON: CT dated 11/01/2023 FINDINGS: Image quality: Excellent. CSF Spaces: Basal cisterns are patent. No extra-axial fluid collections. Ventricles are normal in size and shape. Brain: No intracranial masses or hemorrhage. Ferrera/white matter interface is normal. There is mild d iffuse cerebral volume loss. Mild degree of patchy high FLAIR signal within the periventricular and s ubcortical white matter. Brainstem appears normal. Diffusion-weighted images demonstrate no acute is chemic insult. No chronic ischemic insults. Normal intravascular flow voids are present. Skull and face: Calvarium has normal marrow signal. Orbits appear normal. Sinuses: Sinuses and mastoids are clear. IMPRESSION: 1. No acute process. No recent infarct. 2. Mild volume loss and small vessel ischemic disease. Reviewed by: Iker Ames MD on 11/02/2023 11:53 AM PST Approved by: Iker Ames MD on 11/02/2023 11:53 AM PST Station ID: [id number]
[2023-11-02 16:52] VITALS: BP 160/80
[2023-11-02 17:35] VITALS: O2SAT 97
== END 2023-11-02 17:42 | disposition short-term general hospital (02) ==
LOC: EDUNIT# → EDBD → ED 18:42
DX: G93.40 Encephalopathy, unspecified (principal); E04.1 Nontoxic single thyroid nodule; R47.01 Aphasia; E87.1 Hypo-osmolality and hyponatremia; R29.702 NIHSS score 2; I10 Essential (primary) hypertension; E78.00 Pure hypercholesterolemia, unspecified; E11.9 Type 2 diabetes mellitus without complications; Z79.02 Long term (current) use of antithrombotics/antiplatelets; Z79.84 Long term (current) use of oral hypoglycemic drugs; Z79.899 Other long term (current) drug therapy
CPT/HCPCS: 36415; 70450; 70496; 70498; 70551; 80053; 80306; 81001; 83690; 85025; 85610; 87633; 93005; 96374; 96375; 99285; J2765; Q9967; 81003; 87086

== ENCOUNTER 2024-03-28 12:25 | Outpatient (CLI) | payer MEDICARE ==
[2024-03-28 13:19] LABS: CALCIUM 9.9 mg/dL (8.5-10.3); CREATININE 1.1 mg/dL (0.6-1.3); POTASSIUM 4.7 mmol/L (3.5-4.5)
[2024-03-28 13:35] LABS: THYROID STIMULATING HORMONE 3.5 uIU/mL (0.34-5.60)
[2024-03-28 14:42] LABS: BILIRUBIN,URINE NEGATIVE (NEGATIVE); GLUCOSE, URINE (UA) NEGATIVE (NEGATIVE); KETONES,URINE (UA) TRACE mg/dL (NEGATIVE); LEUKOCYTE ESTERASE, URINE NEGATIVE (NEGATIVE); NITRITE,URINE NEGATIVE (NEGATIVE); OCCULT BLOOD,URINE NEGATIVE (NEGATIVE); PROTEIN,URINE TRACE mg/dL (NEGATIVE); UROBILINOGEN,URINE 0.2 (NORMAL) E.U./dL (NORMAL)
[2024-03-28 14:45] LABS: CLARITY,URINE CLEAR (CLEAR)
[2024-03-28 15:04] LABS: BACTERIA,URINE Rare /HPF (None Seen); RBC,URINE 0-5 /HPF (0-5); SQUAMOUS EPITHELIAL CELL,UR RARE Squamous (<= Few)
--- NOTE | 2024-03-28 15:23 | Ultrasound Report ---
PROCEDURE: Soft Tissue Head or Neck INDICATIONS: THYROID NODULE TECHNIQUE: Real-time scanning was performed of the thyroid gland, with image documentation. COMPARISON: CT 11/01/2023 FINDINGS: Right: Thyroid lobe measures 6.9 x 2.4 x 2.6 cm. Left: Thyroid lobe measures 5.2 x 2.1 x 1.9 cm Isthmus: 0.2 cm thick. Echotexture: Heterogeneous. Nodule number: One Location: Right mid Size: 1.9 x 1.7 x 1.6 cm. Composition: Predominantly solid. Echogenicity: Isoechoic (1 point). Shape: wider than tall (0 points). Margins: Smooth (0 points). Echogenic foci: None (0 points). Total points: 3 ACR TI-RADS category: TI-RADS 3: Mildly suspicious. Nodule number: Two Location: Right inferior Size: 2.2 x 2.1 x 1.7 cm. Composition: Solid. Echogenicity: Isoechoic. Shape: wider than tall (0 points). Margins: Smooth (0 points). Echogenic foci: None (0 points). Total points: 3 ACR TI-RADS category: TI-RADS 3: Mildly suspicious. Nodule number: Three Location: Left superior Size: 1.9 x 1.6 x 1.7 cm. Composition: Predominant solid. Echogenicity: Isoechoic. Shape: wider than tall (0 points). Margins: Smooth (0 points). Echogenic foci: None (0 points). Total points: 3 ACR TI-RADS category: TI-RADS 3: Mildly suspicious. IMPRESSION: Mildly suspicious thyroid nodules as described above. Recommend one-year follow-up ultra sound based on below criteria. ACR TI-RADS definitions and recommendations: TI-RADS 1 (benign): 0 points. FNA not needed. TI-RADS 2 (not suspicious): 2 points. FNA not needed. TI-RADS 3 (mildly suspicious): 3 points. "FNA if 2.5 cm or larger, follow up if 1.5 cm or larger (at 1, 3, and 5 years). TI-RADS 4 (moderately suspicious): 4-6 points. "FNA if 1.5 cm or larger, follow up if 1 cm or larger (at 1, 2, 3, and 5 years). TI-RADS 5 (highly suspicious): 7 points or more. "FNA if 1 cm or larger, follow up if 0.5 cm or larger (every year for 5 years). Reviewed by: Laci Carranza MD on 03/28/2024 3:22 PM PDT Approved by: Laci Carranza MD on 03/28/2024 3:22 PM PDT Station ID: [id number]
== END 2024-03-28 12:26 | disposition home or self-care (01) ==
LOC: DI 12:25
PROVIDERS: ATTEND Registered Nurse
DX: E04.2 Nontoxic multinodular goiter (principal); I10 Essential (primary) hypertension; D64.9 Anemia, unspecified
CPT/HCPCS: 36415; 80048; 81001; 84443

== ENCOUNTER 2024-05-03 15:01 | Outpatient (CLI) | payer MEDICARE | END 2024-05-03 15:02 | disposition home or self-care (01) | LOC: DI 15:01 | PROVIDERS: ATTEND Registered Nurse | DX: I11.9 Hypertensive heart disease without heart failure (principal) | CPT/HCPCS: 93307 ==